=== PATIENT | male | born 1970 | race Two or more races ===

== ENCOUNTER 2018-02-26 18:55 | Inpatient (IN) | payer OTHER, MEDICAID ==
[~2018-02-26] VITALS: Ht 175.3 cm; Wt 110.9 kg
[~2018-02-26 18:55] MED LIST: BENA10TA84 PO; CAR3125T OR; FURO20TA OR; LITH300T5 PO; MIRT30TA PO; OXC300T OR; POTA10IN OR; QUE100T PO; RIMRON; RISP0.5T12 PO
[2018-02-26] MEDS ORDERED: SODIUM CHLORIDE 0.9% 1,000 ML IVB ONE (19:56)
[2018-02-26 20:14] LABS: Eosinophils # (auto) 0.1 uL; Lymphocytes # (auto) 1.6 uL; Monocytes # (auto) 0.9 uL
[2018-02-26 20:15] LABS: Basophils # (auto) 0 uL; Basophils % (auto) 0.5 % (0.0-2.0); Eosinophils % (auto) 0.9 % (0.0-7.0); Hemoglobin 12.2 g/dL (13.5-17.5); Lymphocytes % (auto) 16.1 % (10.0-50.0); Mean Corpuscular Hemoglobin 25.2 pg (28.0-32.0); Mean Corpuscular Hgb Conc. 32.2 g/dL (32.0-36.0); Mean Corpuscular Volume 78.3 fL (80.0-100.0); Monocytes % (auto) 8.9 % (0.0-12.0); Neutrophils # (auto) 7.2 uL; Neutrophils % (auto) 73.6 % (37.0-80.0); Platelet Count (auto) 218 10^3/uL (140-450); Red Blood Cells 4.85 10^6/uL (4.5-5.90); Red Cell Distribution Width 16.8 % (11.8-14.3); White Blood Cell 9.7 10^3/uL (4.4-10.8)
[2018-02-26 20:21] LABS: Urine Bacteria NONE SEEN /hpf (None Seen); Urine Blood Negative /uL (Negative); Urine Specific Gravity 1.004 (1.001-1.035); Urine WBC <1 /hpf (0 - 3)
[2018-02-26 20:29] LABS: INR 0.93 (0.9-1.15); Partial Thromboplastin Time 26.6 sec (23.78-33.04)
[2018-02-26 20:31] LABS: Alanine Aminotransferase 21 U/L (16-61); Albumin 3.2 g/dL (3.4-5.0); Anion Gap 9 (5-15); Aspartate Aminotransferase 16 U/L (15-37); BUN/Creatinine Ratio 14.1; Blood Urea Nitrogen 10 mg/dL (7-18); Calcium 8.1 mg/dL (8.5-10.1); Carbon Dioxide 23 mmol/L (21-32); Chloride 101 mmol/L (98-107); GFR African American 152 mL/min; GFR Non-African American 125 mL/min; Glucose 94 mg/dL (74-106); Potassium 4.1 mmol/L (3.5-5.1); Sodium 133 mmol/L (136-145)
[2018-02-26 20:36] LABS: Alkaline Phosphatase 98 U/L (45-117); Bilirubin, Total 0.3 mg/dL (0.2-1.0); Total Protein 6.9 g/dL (6.4-8.2)
[2018-02-26] MEDS ORDERED: HYDROcodone-ACET 10/325MG TAB PO ONE (22:00)
[2018-02-27] MEDS ORDERED: ONDANSETRON HCL 4 MG/2 ML VIAL IV PRN (02:00)
[2018-02-27] MEDS ORDERED: ACETAMINOPHEN 500 MG TAB PO PRN (02:00)
[2018-02-27 04:29] VITALS: BP 139/88
[2018-02-27 05:12] VITALS: BP 139/88
[2018-02-27] MEDS ORDERED: CITA10TA59 PO (05:49)
[2018-02-27] MEDS ORDERED: OLAN20TA13 PO (05:49)
[2018-02-27] MEDS ORDERED: ASPI-231 PO (05:49)
[2018-02-27] MEDS ORDERED: LOSA25TA40 PO (05:49)
[2018-02-27] MEDS: LITHIUM CARBONATE 300 MG TAB PO SCH ×3 (05:55→22:27)
[2018-02-27] MEDS: PANTOPRAZOLE 40 MG TAB PO SCH (07:54)
[2018-02-27] MEDS: CARVEDILOL 12.5 MG TAB PO SCH ×2 (07:55→17:52)
[2018-02-27 09:00] VITALS: BP 109/65
[2018-02-27 09:12] LABS: Eosinophils # (auto) 0.1 uL; Hemoglobin 12.9 g/dL (13.5-17.5); Monocytes # (auto) 0.3 uL
[2018-02-27 09:14] LABS: Basophils # (auto) 0 uL; Basophils % (auto) 0.7 % (0.0-2.0); Eosinophils % (auto) 1.5 % (0.0-7.0); Hematocrit 40.3 % (41.0-53.0); Lymphocytes # (auto) 1.4 uL; Lymphocytes % (auto) 23.1 % (10.0-50.0); Mean Corpuscular Volume 78.1 fL (80.0-100.0); Monocytes % (auto) 5.9 % (0.0-12.0); Neutrophils % (auto) 68.8 % (37.0-80.0); Nucleated Red Blood Cells % 0.1 %; Platelet Count (auto) 228 10^3/uL (140-450); Red Blood Cells 5.16 10^6/uL (4.5-5.90); Red Cell Distribution Width 16.9 % (11.8-14.3); White Blood Cell 5.8 10^3/uL (4.4-10.8)
[2018-02-27 09:26] LABS: Calcium 8.6 mg/dL (8.5-10.1); Potassium 3.6 mmol/L (3.5-5.1)
[2018-02-27 09:34] LABS: BUN/Creatinine Ratio 9.1
[2018-02-27] MEDS: LOSARTAN POTASSIUM 25 MG TAB PO SCH (10:30)
[2018-02-27] MEDS: CITALOPRAM HYDROBR 20 MG TAB PO SCH (10:31)
[2018-02-27] MEDS: risperiDONE 1 MG TAB PO SCH (10:31)
[2018-02-27] MEDS: HYDROcodone-ACET 5/325MG TAB PO PRN ×2 (11:24→17:32)
[2018-02-27 13:00] VITALS: BP 119/75
[2018-02-27] MEDS ORDERED: MAGNESIUM SULFATE 1GM/100ML 100 ML IV ONE (16:00)
[2018-02-27 17:00] VITALS: BP 119/68
[2018-02-27 21:49] VITALS: BP 95/59
[2018-02-27] MEDS ORDERED: ATORVASTATIN 20 MG TAB PO SCH (22:00)
[2018-02-27] MEDS ORDERED: QUEtiapine FUMARATE 100 MG TAB PO SCH (22:00)
[2018-02-28 05:00] VITALS: BP 135/83
[2018-02-28 05:29] LABS: Hemoglobin 13.5 g/dL (13.5-17.5)
[2018-02-28 05:33] LABS: Hematocrit 42.5 % (41.0-53.0)
[2018-02-28] MEDS: LITHIUM CARBONATE 300 MG TAB PO SCH (05:48)
[2018-02-28] MEDS: HYDROcodone-ACET 5/325MG TAB PO PRN ×2 (05:48→10:04)
[2018-02-28 07:40] VITALS: BP 130/75
[2018-02-28] MEDS: PANTOPRAZOLE 40 MG TAB PO SCH (09:08)
[2018-02-28] MEDS: CARVEDILOL 12.5 MG TAB PO SCH (09:09)
[2018-02-28] MEDS: LOSARTAN POTASSIUM 25 MG TAB PO SCH (10:03)
[2018-02-28] MEDS: CITALOPRAM HYDROBR 20 MG TAB PO SCH (10:03)
[2018-02-28] MEDS: risperiDONE 1 MG TAB PO SCH (10:04)
[2018-02-28 11:37] VITALS: BP 145/86
== END 2018-02-28 13:56 | disposition home or self-care (01) | DRG 378 ==
LOC: EDBD 18:55 → EDUNIT# 18:55 → ER 19:02 → OVERFLOW 23:13 → TELE-CENTR 02-27 03:55
PROVIDERS: ADMIT Nurse Practitioner Family; ATTEND Internal Medicine
DX: K62.5 Hemorrhage of anus and rectum (principal); E44.1 Mild protein-calorie malnutrition; E87.1 Hypo-osmolality and hyponatremia; I95.1 Orthostatic hypotension; K64.9 Unspecified hemorrhoids; K57.30 Diverticulosis of large intestine without perforation or abscess without bleeding; Z68.36 Body mass index [BMI] 36.0-36.9, adult; D64.9 Anemia, unspecified; E66.9 Obesity, unspecified; F17.210 Nicotine dependence, cigarettes, uncomplicated; F20.9 Schizophrenia, unspecified; F31.9 Bipolar disorder, unspecified; F41.9 Anxiety disorder, unspecified; I10 Essential (primary) hypertension; R00.1 Bradycardia, unspecified; J44.9 Chronic obstructive pulmonary disease, unspecified; K21.9 Gastro-esophageal reflux disease without esophagitis; K43.2 Incisional hernia without obstruction or gangrene; Z82.49 Family history of ischemic heart disease and other diseases of the circulatory system
CPT/HCPCS: 36415; 70450; 71045; 74176; 80048; 80053; 80178; 81001; 82270; 83735; 83880; 84484; 85014; 85018; 85025; 85610; 85730; 86850; 86900; 86901; 87081; 93005; 94761; 96360; G0378

== ENCOUNTER 2018-05-04 08:06 | Day surgery (SDC) | payer OTHER, MEDICAID ==
[2018-05-02 12:12] LABS: Urine Bacteria NONE SEEN /hpf (None Seen); Urine Blood Negative /uL (Negative); Urine Specific Gravity 1.004 (1.001-1.035); Urine WBC <1 /hpf (0 - 3)
[2018-05-02 12:20] LABS: Basophils % (auto) 0.6 % (0.0-2.0); Eosinophils # (auto) 0.1 uL; Hemoglobin 14.8 g/dL (13.5-17.5); Lymphocytes # (auto) 1.8 uL; Monocytes # (auto) 0.5 uL; Red Blood Cells 5.95 10^6/uL (4.5-5.90)
[2018-05-02 12:21] LABS: Basophils # (auto) 0 uL; Hematocrit 46.5 % (41.0-53.0); Lymphocytes % (auto) 21.9 % (10.0-50.0); Mean Corpuscular Hemoglobin 24.8 pg (28.0-32.0); Mean Corpuscular Hgb Conc. 31.8 g/dL (32.0-36.0); Mean Corpuscular Volume 78.2 fL (80.0-100.0); Monocytes % (auto) 5.9 % (0.0-12.0); Neutrophils % (auto) 70.6 % (37.0-80.0); Nucleated Red Blood Cells % 0.1 %; Platelet Count (auto) 255 10^3/uL (140-450); Red Cell Distribution Width 17.5 % (11.8-14.3); White Blood Cell 8.4 10^3/uL (4.4-10.8)
[2018-05-02 12:34] LABS: INR 0.92 (0.9-1.15); Partial Thromboplastin Time 27.1 sec (23.78-33.04); Prothrombin Time 9.9 sec (9.27-12.13)
[2018-05-02 12:56] LABS: Albumin 3.8 g/dL (3.4-5.0); Calcium 9.1 mg/dL (8.5-10.1); Potassium 3.9 mmol/L (3.5-5.1)
[2018-05-02 12:58] LABS: BUN/Creatinine Ratio 8.4; Bilirubin, Total 0.3 mg/dL (0.2-1.0); Total Protein 8.5 g/dL (6.4-8.2)
[~2018-05-04] VITALS: Ht 175.3 cm; Wt 111.6 kg
[~2018-05-04 08:06] MED LIST changes: +ASPI-231 PO; -BENA10TA84 PO; +CITA10TA59 PO; -FURO20TA OR; +LOSA25TA40 PO; -MIRT30TA PO; +OLAN20TA13 PO; -POTA10IN OR; -RIMRON
[2018-05-04] MEDS ORDERED: ceFAZolin 1GM/50ML 50 ML IV ONE (08:37)
[2018-05-04] MEDS ORDERED: BUPIVACAINE 0.75% INJ 10ML MPV SDV IJ ONE ×2 (09:23→10:19)
[2018-05-04] MEDS ORDERED: fentaNYL CITRATE 100 MCG/2 ML VL ONE (10:02)
[2018-05-04] MEDS ORDERED: ONDANSETRON HCL 4 MG/2 ML VIAL ONE (10:02)
[2018-05-04] MEDS ORDERED: SODIUM CHLORIDE LOCK 10 ML ONE (10:02)
[2018-05-04] MEDS ORDERED: MIDAZOLAM HCL 1MG/1ML-2 ML VIAL ONE (10:02)
[2018-05-04] MEDS ORDERED: PROPOFOL 10 MG/ML 20 ML IV ONE (10:02)
[2018-05-04 11:57] VITALS: BP 151/100
== END 2018-05-04 12:05 | disposition home or self-care (01) ==
LOC: SUR 08:06
PROVIDERS: ATTEND Podiatrist Foot & Ankle Surgery
DX: M25.572 Pain in left ankle and joints of left foot (principal); J44.9 Chronic obstructive pulmonary disease, unspecified; F20.9 Schizophrenia, unspecified; F41.9 Anxiety disorder, unspecified; D64.9 Anemia, unspecified; E78.5 Hyperlipidemia, unspecified; E66.01 Morbid (severe) obesity due to excess calories; F32.9 Major depressive disorder, single episode, unspecified; Z91.5 Personal history of self-harm; Z98.890 Other specified postprocedural states; Z81.1 Family history of alcohol abuse and dependence; Z82.49 Family history of ischemic heart disease and other diseases of the circulatory system; Z68.36 Body mass index [BMI] 36.0-36.9, adult
CPT/HCPCS: 28112; 36415; 80053; 81001; 85025; 85610; 85730; 88304; 88311; J0690; J2250; J2405; J2704; J3010; J3490; Q4139